=== PATIENT | female | born 1945 | race Caucasian/White ===

== ENCOUNTER → 2023-10-23 16:49 | Outpatient (REF) | payer MEDICARE, OTHER, SELFPAY | LOC: MRI 3T 16:49 | PROVIDERS: ATTENDING PHYSICIAN Student in an Organized Health Care Education/Training Program | DX: I68.0 Cerebral amyloid angiopathy (principal); R51.9 Headache, unspecified; R42 Dizziness and giddiness; R41.3 Other amnesia | CPT/HCPCS: 70553; A9575 ==

== ENCOUNTER → 2024-05-10 10:57 | Outpatient (REF) | payer MEDICARE, OTHER, SELFPAY | LOC: WDC 10:57 | PROVIDERS: ATTENDING PHYSICIAN Student in an Organized Health Care Education/Training Program | DX: N95.1 Menopausal and female climacteric states (principal); Z12.31 Encounter for screening mammogram for malignant neoplasm of breast; M79.622 Pain in left upper arm; Z78.0 Asymptomatic menopausal state | CPT/HCPCS: 73060 ==

== ENCOUNTER → 2025-01-27 13:13 | Outpatient (REF) | payer MEDICARE, OTHER, SELFPAY | LOC: RAD 13:13 | PROVIDERS: ATTENDING PHYSICIAN Physician Assistant | DX: R05.1 Acute cough (principal) | CPT/HCPCS: 71046 ==

== ENCOUNTER 2025-03-04 10:51 | Emergency (ER) | payer MEDICARE, OTHER, SELFPAY ==
[2025-03-04 11:01] VITALS: BP 160/92
--- NOTE | 2025-03-04 12:36 | ED.GENMED ---
History of Present Illness
General
Chief Complaint: Chest Pain
Source: patient
Exam Limitations: none
Time Seen by Provider: 03/04/25 12:14
History of Present Illness
History of Present Illness:
79-year-old female presents in referral from family doctor after developing symptoms at 3 AM this morning that woke her up that included nausea diaphoresis and indigestion sensation. She had appoint with her family doctor this morning anyway. By
the time she saw her family doctor the symptoms resolved. EKG in the office of the family doctor showed right bundle branch block. She was sent here for further evaluation. Patient denies any chest pain or abdominal pain or nausea currently. She
has a family history coronary artery disease. She states he is under a lot of stress. No prior abdominal surgical history other than . No other complaints at this time
Past History
Past History
ED Past Medical History: GERD, HTN, Hypercholesterolemia and Valvular disease
Phy Exam
Physical Exam
Physical Exam:
General: Well-appearing female no acute respiratory distress
HEENT normocephalic atraumatic
Heart: Regular rate and rhythm
Lungs: Clear no wheeze
Extremities: No cyanosis or edema
Abdomen is soft nontender
Scores
Heart Score for Chest Pain Patients
STEMI patient?: No
History: Slightly or Non-Suspicious
ECG: Normal
Age: >/= 65 years
Risk Factors: 1 or 2 Risk Factors
Troponin: </= Normal Limit
Heart Score for Chest Pain Patients: 3
Heart Score Risk: 2.5% MACE over next 6 weeks
Course
Orders/Labs/Results
Orders:
Orders
03/04/25 10:52
Electrocardiogram (*1) Urgent
Reason for Study: Chest Pain
EKG- Treatment ONCE
03/04/25 12:21
IV Insert/Care/Rem.- Treatment PRN
03/04/25 12:25
Complete Blood Count/With Diff Urgent
Comprehensive Metabolic Panel Urgent
Lipase Urgent
Comment: ADD ON
Troponin I Urgent
03/04/25 12:32
Add On- LAB Urgent
Tests Added?: lipase
Abnormal Lab Results
03/04/25
12:25
Glucose 110 H mg/dl
(70-99)
Alkaline Phosphatase 140 H U/L
(38-126)
03/04/25 12:25
03/04/25 12:25
Vital Signs
Initial and Last Documented VS:
Initial Vital Signs
Temp Pulse Resp BP Pulse Ox
98.2 F 77 16 160/92 98
03/04/25 11:01 03/04/25 11:01 03/04/25 11:01 03/04/25 11:01 03/04/25 11:01
Last Documented Vital Signs
Temp Pulse Resp BP Pulse Ox
98.2 F 75 18 160/92 97
03/04/25 11:01 03/04/25 14:00 03/04/25 14:00 03/04/25 11:01 03/04/25 14:00
MDM/Problems Addressed
Differential Diagnosis Includes:
Patient had episode of nausea with indigestion and diaphoresis earlier today sent in for evaluation of ACS. EKG shows right bundle branch block without obvious ischemic changes. Patient is symptom-free currently. Differential could include ACS
versus GERD. No chest pain currently no shortness of breath currently. Do not suspect PE or dissection. Labs pending
*Pulse Oximetry
SaO2: 98
Oxygen Mode of Delivery: Room air
Patient hypoxic: no
*Critical Care Note
Total Time (30-74mins, 75-104mins- exclusive of procedures): Not Applicable
Update Note
Update Note:
Workup here unremarkable other than right bundle branch block on EKG. Troponin is undetectable. Patient has been symptom-free here. She has been expressing her desire to go home as she feels well. Discussed with both family doctor and
cardiology. Cardiology aware will follow-up as outpatient
ED Attending Note
-
Portions of this chart may have been created with voice recognition software.� Occasional wrong word or��sound alike� substitutions may have occurred due to the inherent limitations of voice recognition software.
Discharge Plan
Departure
Patient Disposition: Home (Routine Discharge)
Date of Disposition: 03/04/25
Time of Disposition: 14:16
Patient with high blood pressure during this ER visit?: Yes
Discharge Problem:
Chest pain
Instructions: Chest Pain CBC Follow Up
Referrals:
Sophia Reeves MD [Family Provider, Internal Medicine]
Activity Restrictions/Additional Instructions:
Please return here for worsening symptoms otherwise follow-up with your relish maker
Interventions
Interventions:
*Risk Screen - Suicide Last Done: 03/04/25 11:01
*Neglect/Abuse Screening Last Done: 03/04/25 11:01
ED- Cardiac Assessment Last Done: 03/04/25 12:21
Discharge Date and Time
Print Language: [place]
[2025-03-04 12:41] LABS: Hematocrit 40.3 % (37.0-47.0); Hemoglobin 13.3 g/dL (12.0-16.0); Mean Corp Hgb Conc. 33.0 g/dL (33.0-37.0); Mean Corpuscular Volume 92.6 fL (81.0-99.0); Nucleated Red Blood Cells % 0 %; Platelet Count 248 10^3/uL (130-400); Red Cell Dist. Width 12.9 % (11.5-14.5)
[2025-03-04 12:55] LABS: ALT (SGPT) 24 U/L (0-35); AST (SGOT) 25 U/L (14-36); Albumin 4.3 g/dl (3.5-5.0); Alkaline Phosphatase 140 U/L (38-126); Blood Urea Nitrogen 11 mg/dl (7-17); Calcium 9.8 mg/dl (8.4-10.2); Carbon Dioxide 27 mmol/L (22-30); Chloride 107 mmol/L (98-107); Glucose 110 mg/dl (70-99); Potassium 4.1 mmol/L (3.5-5.1); Sodium 139 mmol/L (135-145); Total Protein 6.8 g/dl (6.3-8.2); eGFR > 60.00
[2025-03-04 13:00] LABS: Troponin I < 0.012 ng/ml
[2025-03-04 13:54] LABS: Lipase 73 U/L (23-300)
== END 2025-03-04 14:25 | disposition home or self-care (01) ==
LOC: EMR 10:51
PROVIDERS: Physician Assistant; EMERGENCY PHYSICIAN Emergency Medicine; FAMILY PHYSICIAN Student in an Organized Health Care Education/Training Program
DX: R07.9 Chest pain, unspecified (principal); E78.00 Pure hypercholesterolemia, unspecified; I10 Essential (primary) hypertension
CPT/HCPCS: 99284; 80053; 83690; 84484; 85025; 93005

== ENCOUNTER → 2025-03-25 10:05 | Outpatient (REF) | payer MEDICARE, OTHER, SELFPAY | LOC: RCS 10:05 | PROVIDERS: ATTENDING PHYSICIAN Student in an Organized Health Care Education/Training Program; FAMILY PHYSICIAN Student in an Organized Health Care Education/Training Program | DX: I45.10 Unspecified right bundle-branch block (principal); R07.9 Chest pain, unspecified | CPT/HCPCS: 93306 ==

== ENCOUNTER → 2025-04-07 10:48 | Outpatient (REF) | payer MEDICARE, OTHER, SELFPAY | LOC: RAD 10:48 | PROVIDERS: ATTENDING PHYSICIAN Student in an Organized Health Care Education/Training Program | DX: R07.89 Other chest pain (principal); R11.0 Nausea | CPT/HCPCS: 76700 ==

== ENCOUNTER → 2025-05-05 12:34 | Outpatient (REF) | payer MEDICARE, OTHER, SELFPAY | LOC: HWRAD 12:34 | PROVIDERS: ATTENDING PHYSICIAN Student in an Organized Health Care Education/Training Program | DX: R05.3 Chronic cough (principal) | CPT/HCPCS: 71250 ==

== ENCOUNTER → 2025-05-15 10:57 | Outpatient (REF) | payer MEDICARE, OTHER, SELFPAY | LOC: WDC 10:57 | PROVIDERS: ATTENDING PHYSICIAN Student in an Organized Health Care Education/Training Program | DX: Z12.31 Encounter for screening mammogram for malignant neoplasm of breast (principal) | CPT/HCPCS: 77063; 77067 ==